=== PATIENT | female | born 1995 | race Asian ===

== ENCOUNTER 2017-01-07 17:07 | Observation (INO) | payer MEDICAID ==
[~2017-01-07] VITALS: Ht 162.6 cm; Wt 92.5 kg
[2017-01-07] MEDS ORDERED: PREN-88 PO (18:25)
[2017-01-07] MEDS ORDERED: ACETAMINOPHEN 500MG TABLET PO NR (18:30)
== END 2017-01-07 19:36 | disposition home or self-care (01) ==
LOC: L&D 17:07
PROVIDERS: ADMIT Obstetrics & Gynecology; ATTEND Obstetrics & Gynecology
DX: O62.9 Abnormality of forces of labor, unspecified (principal); O26.899 Other specified pregnancy related conditions, unspecified trimester; M54.9 Dorsalgia, unspecified; Z3A.00 Weeks of gestation of pregnancy not specified
CPT/HCPCS: 99281; G0378